=== PATIENT | male | born 1985 | race Caucasian/White ===

== ENCOUNTER 2020-06-16 01:52 | Outpatient (CLI) | payer OTHER, SELFPAY ==
[2020-06-16 18:52] LABS: SARS-CoV-2 RNA PCR Negative
== END 2020-06-16 01:53 | disposition home or self-care (01) ==
LOC: ANHCOVIDDT 01:52
PROVIDERS: Visit Provider Dentist
DX: Z01.812 Encounter for preprocedural laboratory examination (principal); Z20.828 Contact with and (suspected) exposure to other viral communicable diseases
CPT/HCPCS: 87635; C9803; U0003

== ENCOUNTER 2020-06-19 00:20 | Day surgery (SDC) | payer OTHER, SELFPAY ==
[2020-06-13 16:18] VITALS: BMI 27.9
--- NOTE | 2020-06-18 10:26 | WPDANESEPPF ---
Anes - Initial Pre Proc Eval Procedure: Operation Date: 06/19/20 07:30 Proposed Procedures p Extraction Twenty Five Teeth, Removal Of Bilateral Mandibular Earnestine - Zack Goode DMD Date/Time: 06/18/20 10:26 Surgeon: Zack Goode DMD Pre Op Diagnosis: Exostosis Mandible, Dental Caries Patient Data Age: 35 Gender: M Height: 1.75 m Weight: 85.9 kg Allergies Allergy/AdvReac Type Severity Reaction Status Date / Time Sulfa (Sulfonamide Allergy Severe HIVES/SHORTNESS Verified 06/19/20 06:14 Antibiotics) OF BREATH Home Medications Medication Instructions Recorded Confirmed Type ibuprofen 600 mg PO DAILY PRN 06/13/20 06/19/20 History vitamin B complex-vit B12 1 cap PO DAILY 06/13/20 06/19/20 History Patient hx anesthesia problems: none Family hx anesthesia problems: none [facility] Past Medical History Medical History Dental caries Overweight (BMI 25.0-29.9) Smoker Social History Social History Years smoked: 20 Smoking status: Light tobacco smoker Tobacco type: cigarettes Second hand tobacco smoke exposure: Yes Alcohol intake: current Substance use: never Living arrangements: with family Spiritual care concerns: No Anes - Eval Final PreProcedure Day of Procedure 06/18/20 10:26 Patient weight: overweight Heart: regular rate and rhythm Lungs: clear to auscultation and normal air movement Airway: Mallampati scale class II Neurological: alert and oriented Last oral intake: >/= 8 hours ASA classification: II Emergent: no Anesthetic plan: proceed Anesthesia type and monitoring: general ETT Informed Consent: The patient's anesthetic plan and its attendant risks and benefits were discussed with the patient/family/POA. Questions were solicited and answers provided to the satisfaction of the patient/family/POA.
[2020-06-19] VITALS (9 sets, daily range): BP systolic 123–158; BP diastolic 80–98; PULSE 75–129; RESP 14–20; TEMP 36.2–36.3; O2SAT 96–100
[2020-06-19] MEDS: LACTATED RINGERS 1,000 ML 30 ML IV CONT ×2 (06:20→08:55)
--- NOTE | 2020-06-19 07:19 | WPDHPUPDATE1 ---
History and Physical Update Update Date/Time: 06/19/20 07:19 History and Physical has been reviewed, including an updated exam of the patient. There are NO changes in the patient's condition. Risks, benefits, and alternatives have been discussed and questions answered. Patient agrees to proceed with procedure.
--- NOTE | 2020-06-19 07:19 | PM.IMHP ---
H&P: HPI History of Present Illness Date/Time: 06/19/20 07:19 Chief complaint: Exostosis Mandible, Dental Caries Narrative: Tutu Robbins is a 35 year old male complains of bad teeth PMFSH Past Medical History Medical History Dental caries Overweight (BMI 25.0-29.9) Smoker Social History Social History Years smoked: 20 Smoking status: Light tobacco smoker Tobacco type: cigarettes Second hand tobacco smoke exposure: Yes Alcohol intake: current Substance use: never Living arrangements: with family Spiritual care concerns: No Meds Home Medications and Allergies Home Medications Medication Instructions Recorded Confirmed Type ibuprofen 600 mg PO DAILY PRN 06/13/20 06/19/20 History vitamin B complex-vit B12 1 cap PO DAILY 06/13/20 06/19/20 History Allergies Allergy/AdvReac Type Severity Reaction Status Date / Time Sulfa (Sulfonamide Allergy Severe HIVES/SHORTNESS Verified 06/19/20 06:14 Antibiotics) OF BREATH Vital Signs Vital Signs - 24 hr 06/19/20 06:02 Temperature 36.3 C L Pulse Rate 75 Respiratory Rate 20 Blood Pressure 123/80 Pulse Oximetry 98 Assessment and Plan Assessment and plan (1) Non-restorable tooth: Code(s): K08.89 - Other specified disorders of teeth and supporting structures Status: Acute Assessment and Plan: nonrestorable teeth, lesion #10, bilateral mandibular arleth. plan-FMTE, biopsy, removal of bilateral arleth
[2020-06-19] MEDS: LIDOCAINE 2%-EPI (FOR DENTAL BLOCK) 1.7 ML CARTRIDGE INFILTRATE (07:41)
--- NOTE | 2020-06-19 08:52 | P.OP_ITS ---
Procedure Note - Detailed Date of procedure: 06/19/20 Pre-op diagnosis: Exostosis Mandible, Dental Caries Surgeon: Zack Goode, VERNON Preoperative diagnosis none restore full dentition lesion area 10. And bilateral mandibular arleth postop diagnosis same EBL 20cc local anesthetic 7cc of 2% lidocaine with 1 100,000 epinephrine. Complications none. Procedure performed surgical removal of teeth #[id number], enucleation of lesion left maxillary area of 10., removal of bilateral mandibular arleth. Description of procedure patient was encountered in the upper [employer] the anesthesia service who induced a general anesthetic. Patient was draped in usual manner for an intraoral surgical procedure. Oral cavity was suctioned free of debris and throat pack placed. Local anesthetic administered. A 15 blade was used to make a sulcular incision in the maxilla and a full-t hickness flap was elevated to the buccal. All maxillary teeth were then removed using a ring forcep technique without complication. Sockets curetted free of debris. I have yellow plasty was completed using rongeur and bone file. The lesion in the area of tooth 10. Was then enucleated from the bony crypt and sent for specimen. The wound was thoroughly irrigated and then closed using 4 point chromic suture in continuous fashion. Attention was turned to the mandible were an incision was made along the necks of the teeth and a full-thickness flap was elevated to the buccal. Remaining teeth were then removed using elevator and forceps technique without complication. Sockets curetted free of debris alveolar plasty completed using rongeur. A lingual flap was then elevated and the bilateral mandibular arleth removed using the drill and bone file. The wound was thoroughly irrigated and then closed using 4 0 chromic gut suture in continuous and interrupted fashion. The oral cavity was suctioned free of debris and the throat pack was removed. Dentures inserted. Care of the patient was returned to the anesthesia service who extubated the patient transferred to recovery in stable condition. End
--- NOTE | 2020-06-19 09:06 | SUR.OPER ---
Throat pack removed at end of case. Verified per Dr Goode. Dentures upper and lower placed in mouth per Dr Goode.
[2020-06-19] MEDS: oxyCODONE HCL (*CRX) 5 MG TAB IR PO (10:25)
== END 2020-06-19 11:25 | disposition home or self-care (01) ==
PROVIDERS: Visit Provider Dentist
PROC: (CPT 21031; principal; 2020-06-19 07:30)
DX: K02.9 Dental caries, unspecified (principal); M27.40 Unspecified cyst of jaw; F17.210 Nicotine dependence, cigarettes, uncomplicated
CPT/HCPCS: 41899 ×25; 21031; 21030; A9270; C9803; J0330; J1100; J2250; J2405; J2704; J3010; J7120; U0003

== ENCOUNTER 2023-08-14 20:51 | Emergency (ER) | payer SELFPAY ==
[2023-08-14 20:52] VITALS: BP 150/76; PULSE 88; RESP 20; TEMP 36.2; O2SAT 100
--- NOTE | 2023-08-14 23:44 | ED.EAR ---
HPI - Ear Problem General Chief complaint: Ear Stated complaint: L ear pain Time Seen by Provider: 08/14/23 23:44 Source: patient Mode of arrival: ambulatory Limitations: no limitations History of Present Illness HPI Narrative: This is a 38 year old male that presents to the ER for left ear pain. Ongoing over the last couple of weeks. Denies fever or drainage. Related Data Home Medications Medication Instructions Recorded Confirmed ibuprofen 600 mg tablet 600 mg PO DAILY PRN Pain 06/13/20 06/19/20 vitamin B complex-vit B12 1 cap PO DAILY 06/13/20 06/19/20 Allergies Allergy/AdvReac Type Severity Reaction Status Date / Time Sulfa (Sulfonamide Allergy Severe HIVES/SHORTNESS Verified 06/19/20 06:14 Antibiotics) OF BREATH Review of Systems Review of Systems: CONSTITUTIONAL: Denies fever ENT: Reports otalgia. All systems reviewed & are unremarkable except as noted in HPI and below PMFSH Past Medical History Medical History Dental caries Overweight (BMI 25.0-29.9) Smoker Social History Social History Years smoked: 20 Smoking status: Light tobacco smoker Tobacco type: cigarettes Second hand tobacco smoke exposure: Yes Alcohol intake: current Substance use: never Living arrangements: with family Spiritual care concerns: No Exam Narrative: GENERAL: Well-appearing, well-nourished, and in no acute distress. HEAD: Normocephalic, atraumatic. EYES: EOMI. ENT: Nares clear, no rhinorrhea or epistaxis. Mucous membranes moist. Oropharynx without tonsillar hypertrophy exudate or other lesions. Bilateral TMs pearly main non-bulging. Left external auditory canal with mild edema and redness NECK: Supple. No adenopathy or masses. CHEST: Clear to auscultation. No respiratory distress. No wheezes rales or rhonchi HEART: Regular rate and rhythm. No murmur heard. Normal peripheral pulses. EXTREMITIES: Normal range of motion. No edema. SKIN: Warm, dry, no rash. NEURO: No focal deficits. Alert and oriented x3. PSYCH: Normal mood and affect Course Course Emergency Course: Patient agrees with plan of care Vital Signs Vital signs: Vital Signs Temperature 97.2 F L 08/14/23 20:52 Pulse Rate 88 08/14/23 20:52 Respiratory Rate 20 08/14/23 20:52 Blood Pressure 150/76 H 08/14/23 20:52 Pulse Oximetry 100 02/04/24 20:52 Oxygen Delivery Room Air 08/14/23 20:52 Temperature 97.2 F L 08/14/23 20:52 Pulse Rate 88 08/14/23 20:52 Respiratory Rate 20 08/14/23 20:52 Blood Pressure 150/76 H 08/14/23 20:52 Pulse Oximetry 100 08/14/23 20:52 Oxygen Delivery Room Air 08/14/23 20:52 Medical Decision Making MDM Narrative Medical decision making narrative: Patient presents to the emergency department for otalgia. Ongoing over the last couple of weeks. Exam is consistent with mild otitis externa. Will be started on topical antibiotic. He is to follow up with primary provider. He was given warnings to return to the ER Vital Signs Vital Signs: Vital Signs Temperature 97.2 F L 08/14/23 20:52 Pulse Rate 88 08/14/23 20:52 Respiratory Rate 20 08/14/23 20:52 Blood Pressure 150/76 H 08/14/23 20:52 Pulse Oximetry 100 08/14/23 20:52 Oxygen Delivery Room Air 08/14/23 20:52 Temperature 97.2 F L 08/14/23 20:52 Pulse Rate 88 08/14/23 20:52 Respiratory Rate 20 08/14/23 20:52 Blood Pressure 150/76 H 08/14/23 20:52 Pulse Oximetry 100 08/14/23 20:52 Oxygen Delivery Room Air 08/14/23 20:52 Critical Care Time Critical Care Time Critical Care Time: No Discharge Plan Discharge Clinical Impression: Otitis externa Qualifiers: Otitis externa type: unspecified type Chronicity: acute Laterality: left Qualified Code(s): H60.502 - Unspecified acute noninfective otitis externa, left ear Patient Disposition: Home, Self-Care Condition: Stable Instructions: Antibiotic Form, Swimmer's Ear (ED) Additional Instructions:
== END 2023-08-15 00:09 | disposition home or self-care (01) ==
LOC: ANHED 23:51
PROVIDERS: Emergency Provider Physician Assistant
DX: H60.502 Unspecified acute noninfective otitis externa, left ear (principal)
CPT/HCPCS: 99283

== ENCOUNTER 2025-04-05 13:45 | Emergency (ER) | payer OTHER, SELFPAY ==
[2025-04-05 13:55] VITALS: BP 136/85; PULSE 91; RESP 18; TEMP 36.6; O2SAT 98
--- NOTE | 2025-04-05 14:08 | ED_ITS ---
HPI - Ear Problem General Chief complaint: Ear Stated complaint: Ear Irritation Time Seen by Provider: 04/05/25 14:08 Source: patient Mode of arrival: ambulatory Limitations: no limitations History of Present Illness HPI Narrative: 39 yo M presents with pain to R ear, bilateral hearing loss. No other symptoms. all systems reviewed and negative except as noted above. Related Data Home Medications ?Medication ?Instructions ?Recorded ?Confirmed ?Last Taken ?Type No Home Medications 04/05/25 04/05/25 U nknown History Allergies Allergy/AdvReac Type Severity Reaction Status Date / Time Sulfa (Sulfonamide Allergy Severe HIVES/SHORTNESS Verified 04/05/25 14:00 Antibiotics) OF BREATH PMFSH Past Medical History Medical History (Updated 04/05/25 @ 14:24 by Christine Spencer NP) Smoker Dental caries Overweight (BMI 25.0-29.9) Social History Social History Years smoked: 20 Smoking status: Light tobacco smoker Tobacco type: cigarettes Second hand tobacco smoke exposure: Yes Alcohol intake: current Substance use: never Living arrangements: with family Spiritual care concerns: No Comments At time of signature, agree with nursing past medical, surgical, social and family history. There is no relevant family history pertinent to the presenting complaint. Exam Narrative: GENERAL: This is a well-nourished, well-developed patient, in no apparent distress. HEAD: normocephalic, atraumatic. EYES: PERRL. Sclera clear/white. Vision is grossly intact. EARS: External ears normal, Cerumen impacted to bilateral ear canals. after irrigation ear canals are normal, bilateral TMs normal without perforation. Hearing grossly intact. NOSE: External nose normal NECK: Neck supple, non-tender without lymphadenopathy, masses or thyromegaly. CARDIOVASCULAR: Regular rate and rhythm without murmurs, gallops, or rubs. RESPIRATORY: Clear to auscultation. Breath sounds equal bilaterally. No wheezes, rales, or rhonchi. SKIN: warm, Dry, intact with no suspicious lesions or rash, good texture and turgor. NEURO: awake, alert, and oriented to person, place and time. There were no obvious focal neurologic abnormalities. EXTREMITIES: No joint tenderness, effusion, or edema noted. Course Course Level of Care: Express Care Visit Vital Signs Vital signs: Vital Signs Temperature 36.6 C 04/05/25 13:55 Pulse Rate 91 04/05/25 13:55 Respiratory Rate 18 04/05/25 13:55 Blood Pressure 136/85 04/05/25 13:55 Pulse Oximetry 98 04/05/25 13:55 Oxygen Delivery Room Air 04/05/25 13:55 Temperature 36.6 C 04/05/25 13:55 Pulse Rate 91 04/05/25 13:55 Respiratory Rate 18 04/05/25 13:55 Blood Pressure 136/85 04/05/25 13:55 Pulse Oximetry 98 04/05/25 13:55 Oxygen Delivery Room Air 04/05/25 13:55 Procedures Ear Wax Removal Both Ears: Ear Wax Removal Date: 04/05/25 Ear Wax Removal Time: 14:20 Cerumenolytic Used: other (warm water) Results: Re-examined: cerumen removed completely TM Examination: TM(s) intact, normal appearance Ear Canal Exam: atraumatic Patient Tolerated Procedure: well Complications: no problems Technique: ear canal irrigated and ear canal curetted Medical Decision Making MDM Narrative Medical decision making narrative: both ear canals irrigated successfully with warm water. Right ear pain resolved after irrigation. Vital Signs Vital Signs: Vital Signs Temperature 36.6 C 04/05/25 13:55 Pulse Rate 91 04/05/25 13:55 Respiratory Rate 18 04/05/25 13:55 Blood Pressure 136/85 04/05/25 13:55 Pulse Oximetry 98 04/05/25 13:55 Oxygen Delivery Room Air 04/05/25 13:55 Temperature 36.6 C 04/05/25 13:55 Pulse Rate 91 04/05/25 13:55 Respiratory Rate 18 04/05/25 13:55 Blood Pressure 136/85 04/05/25 13:55 Pulse Oximetry 98 04/05/25 13:55 Oxygen Delivery Room Air 04/05/25 13:55 Discharge Plan Discharge Clinical Impression: Bilateral hearing loss due to cerumen impaction Patient Disposition: Home Condition: Stable Instructions: General Patient Instructions Additional Instructions: Both ears were irrigated with warm water. Cerumen was removed successfully. No signs of infection noted. Patient Language: Kinyarwanda Prescriptions: No Action No Home Medications Follow-up/Referrals: Sharee,Luis Awan [Primary Care Provider] Time of Disposition: 14:24
== END 2025-04-05 14:36 | disposition home or self-care (01) ==
PROVIDERS: Emergency Provider Nurse Practitioner Family; PCP Family Medicine Adult Medicine
DX: H61.23 Impacted cerumen, bilateral (principal); F17.210 Nicotine dependence, cigarettes, uncomplicated
CPT/HCPCS: 69209; 99212; G0463